=== PATIENT | female | born 1990 | race Caucasian/White ===

== ENCOUNTER 2017-07-23 17:36 | Inpatient (IN) ==
[2017-07-23 18:50] LABS: Basophils # 0.1 10*3/uL (0.0-0.2); Basophils % 0.5 % (0.0-0.8); Eosinophils # 0.2 10*3/uL (0.0-0.87); Eosinophils % 2.1 % (0.00-10.9); Hematocrit 40.6 VOL% (35.7-47.0); Hemoglobin 13.4 GM/DL (12.0-16.0); Immature Granulocytes % 1.6 %; Immature Granulocytes Absolute 0.15 #; Lymphocytes # 1.5 10*3/uL (1.4-4.0); Mean Corpuscular Hemoglobin 32 PG (27-34); Mean Corpuscular Volume 96.9 FL (87-102); Mean Platelet Volume 13.3 FL (9.6-12.0); Monocytes # 0.5 10*3/uL (0.11-0.8); Monocytes % 5.8 % (1.7-12.7); Neutrophils # 6.9 10*3/uL (1.4-7.4); Platelet Count 114 T/CUMM (130-400); Red Blood Count 4.19 MC/CUMM (3.8-5.5); Red Cell Distribution Width 12.2 % (9.3-17.3); White Blood Count 9.4 T/CUMM (4-12)
[2017-07-23 19:08] LABS: Alanine Aminotransferase 15 U/L (13-56); Alkaline Phosphatase 131 U/L (45-117); Aspartate Amino Transferase 15 U/L (0-37); Bilirubin,Total < 0.39 MG/DL (0.2-1.0); Blood Urea Nitrogen 9 MG/DL (7-18); Calcium 8.8 MG/DL (8.5-10.1); Glucose 75 MG/DL (74-106); Osmolality,Calculated 272.7 MOS/KG (273-304); Potassium 3.8 MMOL/L (3.5-5.1); Sodium 138 MMOL/L (136-145); Total Protein 6.2 G/DL (6.4-8.3)
[2017-07-23] MEDS: diphenhydrAMINE 50 MG/1 ML VIAL IV PRN (19:40)
[2017-07-24] MEDS: diphenhydrAMINE 50 MG/1 ML VIAL IV PRN ×4 (00:47→18:34)
[2017-07-24] MEDS ORDERED: BUTORPHANOL 2 MG/ML VIAL ONE (05:41)
[2017-07-24] MEDS ORDERED: BUTORPHANOL 2 MG/ML VIAL IV PRN (05:47)
[2017-07-24] MEDS: LACTATED RINGERS 1,000 ML IV SCH ×4 (05:57→19:16)
[2017-07-24] MEDS: ONDANSETRON 4 MG/2 ML VIAL IV PRN ×4 (05:58→23:33)
[2017-07-24] MEDS: MEPERIDINE 50 MG/1 ML VIAL IV PRN ×3 (08:17→12:17)
[2017-07-24] MEDS ORDERED: hydrOXYzine HCL 25 MG/1 ML VIAL IM PRN ×2 (13:03→15:43)
[2017-07-24] MEDS ORDERED: CITRIC ACID/SODIUM CITRATE 30 ML UDCUP PO ONE (13:03)
[2017-07-24] MEDS ORDERED: LACTATED RINGERS 1,000 ML IV ONE (13:03)
[2017-07-24] MEDS ORDERED: FAMOTIDINE 20 MG/2 ML VIAL IV ONE (13:03)
[2017-07-24] MEDS ORDERED: ePHEDrine 50 MG/ML AMP IV PRN (13:03)
[2017-07-24] MEDS ORDERED: fentaNYL 2 MCG/ROPIV 0.2% EPID 150 ML EPIDURAL SCH (13:30)
[2017-07-24] MEDS ORDERED: OXYTOCIN/LR 20 UNIT/1,000 ML BAG IV SCH (14:00)
[2017-07-24 15:21] LABS: Cord Venous Blood PCO2 55.9 MMHG; Cord Venous Blood PO2 39.6
[2017-07-24] MEDS ORDERED: CLINDAMYCIN INJ 900 MG in PREMIX 1 EACH IV ONE (15:30)
[2017-07-24] MEDS ORDERED: ROPIVACAINE 0.5% 30 ML VIAL ONE (15:37)
[2017-07-24 15:38] LABS: Apearance,Urine CLEAR (Clear); Bilirubin,Urine Negative (Negative); Blood, Urine Negative (Negative); Glucose,Urine (UA) Negative (Negative); Ketones,Urine Negative (Negative); Mucus,Urine Occasional /LPF (Occasional); Nitrite,Urine Negative (Negative); Protein,Urine Negative; RBC,Urine 1 /HPF (0-4); Urine Color Yellow (Yellow); Urine Specific Gravity 1.013 (1.001-1.035); Urine Urobilinogen < 2.0 EU/DL (0.2-1.0); WBC,Urine 1 /HPF (0-6)
[2017-07-24] MEDS ORDERED: MIDAZOLAM 2 MG/2 ML VIAL ONE (15:38)
[2017-07-24] MEDS ORDERED: MORPHINE 10 MG/10 ML VIAL ONE (15:38)
[2017-07-24] MEDS ORDERED: ONDANSETRON 4 MG/2 ML VIAL IV PRN (15:43)
[2017-07-24] MEDS ORDERED: diphenhydrAMINE 50 MG/1 ML VIAL IV PRN (15:43)
[2017-07-24] MEDS ORDERED: HYDROmorphone 2 MG/1 ML VIAL IV PRN (15:43)
[2017-07-24] MEDS ORDERED: SODIUM CHLORIDE 0.9% 1,000 ML IV SCH (16:00)
[2017-07-24] MEDS ORDERED: LACTATED RINGERS 1,000 ML IV SCH (16:00)
[2017-07-24] MEDS: methylPREDNISolone SOD SUC 40 MG/1 ML VIAL IV SCH (19:48)
[2017-07-24] MEDS: CLINDAMYCIN INJ 900 MG in PREMIX 1 EACH IV SCH (23:15)
[2017-07-24] MEDS: CLOBETASOL 0.05% CREAM 15 GM TUBE TOP SCH (23:16)
[2017-07-25] MEDS: methylPREDNISolone SOD SUC 40 MG/1 ML VIAL IV SCH ×3 (02:23→13:47)
[2017-07-25] MEDS: CLINDAMYCIN INJ 900 MG in PREMIX 1 EACH IV SCH (06:05)
[2017-07-25] MEDS ORDERED: SIMETHICONE CHEW 80 MG TABLET PO PRN (07:12)
[2017-07-25] MEDS ORDERED: MAGNESIUM HYDROXIDE SUSP 30 ML UDCUP PO PRN (07:12)
[2017-07-25 08:09] LABS: Basophils % 0.2 % (0.0-0.8); Eosinophils % 0.1 % (0.00-10.9); Hematocrit 39.1 VOL% (35.7-47.0); Hemoglobin 13.2 GM/DL (12.0-16.0); Immature Granulocytes Absolute 0.19 #; Lymphocytes # 1.5 10*3/uL (1.4-4.0); Lymphocytes % 8.1 % (21.3-54.2); Mean Corpuscular HGB Conc 33.8 GM/DL (32-36); Mean Corpuscular Hemoglobin 32 PG (27-34); Mean Corpuscular Volume 95.8 FL (87-102); Monocytes # 0.5 10*3/uL (0.11-0.8); Monocytes % 2.5 % (1.7-12.7); Neutrophils # 16.9 10*3/uL (1.4-7.4); Neutrophils % 88.1 % (38.7-73.9); Platelet Count 129 T/CUMM (130-400); Red Blood Count 4.08 MC/CUMM (3.8-5.5); Red Cell Distribution Width 12.2 % (9.3-17.3); White Blood Count 19.1 T/CUMM (4-12)
[2017-07-25] MEDS: DOCUSATE SODIUM 100 MG CAPSULE PO SCH ×2 (09:47→21:23)
[2017-07-25] MEDS: CLOBETASOL 0.05% CREAM 15 GM TUBE TOP SCH ×2 (09:47→21:22)
[2017-07-25] MEDS: MULTIVITAMIN (PRENATAL) TABLET PO SCH (09:47)
[2017-07-25] MEDS: oxyCODONE/ACETAMINOPHEN 5-325 MG TABLET PO PRN (20:19)
[2017-07-25] MEDS: IBUPROFEN 800 MG TABLET PO PRN (21:23)
[2017-07-26] MEDS: oxyCODONE/ACETAMINOPHEN 5-325 MG TABLET PO PRN ×2 (03:05→09:44)
[2017-07-26 07:30] VITALS: BP 108/53
[2017-07-26] MEDS: DOCUSATE SODIUM 100 MG CAPSULE PO SCH (09:32)
[2017-07-26] MEDS: MULTIVITAMIN (PRENATAL) TABLET PO SCH (09:32)
[2017-07-26] MEDS: CLOBETASOL 0.05% CREAM 15 GM TUBE TOP SCH (09:32)
[2017-07-26] MEDS: IBUPROFEN 800 MG TABLET PO PRN (09:57)
[2017-07-26] MEDS ORDERED: DIPH/TET/ACEL PERT BOOSTER VACCINE 0.5 ML VIAL IM ONE ×2 (11:02→11:10)
== END 2017-07-26 15:05 | disposition home or self-care (01) | DRG 766 ==
LOC: N.LDOUT 17:36 → N.LD 17:37 → N.OB 07-24 18:00
PROVIDERS: ADMIT Obstetrics & Gynecology; ATTEND Obstetrics & Gynecology
PROC: LDCSECT (ICD-10-PCS; 2017-07-24 18:25)